=== PATIENT | female | born 1945 | race Caucasian/White ===

== ENCOUNTER 2018-01-05 08:38 | Emergency (ER) | payer OTHER ==
[~2018-01-05] VITALS: Ht 162.6 cm; Wt 104.3 kg
[2018-01-05] MEDS ORDERED: BLOOD PRESSURE (08:52)
[2018-01-05] MEDS ORDERED: ASTHMA (08:52)
[2018-01-05] MEDS ORDERED: ZOFRAN ODT4 MG PO ×2 (10:44→13:37)
[2018-01-05] MEDS ORDERED: BACTRIM DS TAB1 EACH PO (10:56)
[2018-01-05 11:15] LABS: ABSOLUTE BASOPHILS 0.1 thou/uL (0.0-0.2); ABSOLUTE EOSINOPHILS 0.1 thou/uL (0.0-0.7); ABSOLUTE LYMPHOCYTES 1.6 thou/uL (0.8-5.3); ABSOLUTE MONOCYTES 1.2 thou/uL (0.0-1.2); ABSOLUTE NEUTROPHILS 12.3 thou/uL (1.6-8.1); BASOPHILS 0.7 %; EOSINOPHILS 0.5 %; HEMATOCRIT 42.1 % (37.0-47.0); HEMOGLOBIN 13.8 gm/dL (12.0-15.0); LYMPHOCYTES 10.5 %; MCHC 32.7 g/dL (28.0-37.0); MCV 88.5 fL (80.0-100.0); MONOCYTES 8.1 %; MPV 9.4 fl. (7.2-11.1); NUCLEATED RBCS 0 /100WBC; PLATELET COUNT* 173 thou/uL (150-400); POLYS 80.2 %; RBC 4.76 mil/uL (4.20-5.00); RDW-CV 13.7 % (10.5-14.5); WBC 15.3 thou/uL (4.0-11.0)
[2018-01-05 11:24] LABS: CREATININE 0.7 mg/dL (0.6-1.3); POTASSIUM 3.2 mmol/L (3.5-5.1)
[2018-01-05 11:25] LABS: APTT 24.5 Seconds (25.0-31.3); INR 1.1; PROTIME 10.7 Seconds (9.20-11.50)
[2018-01-05 11:28] LABS: ALBUMIN 3.7 g/dL (3.4-5.0); TOTAL BILIRUBIN 0.4 mg/dL (<0.1-1.0); TOTAL PROTEIN 7.5 g/dL (6.4-8.2)
[2018-01-05] MEDS ORDERED: TRAMADOL 50 MG50 MG PO (13:37)
[2018-01-05 13:58] VITALS: BP 141/85
== END 2018-01-05 13:58 | disposition home or self-care (01) ==
LOC: M.ERS 08:38
PROVIDERS: Personal Emergency Response Attendant
DX: S62.102A Fracture of unspecified carpal bone, left wrist, initial encounter for closed fracture (principal); J45.909 Unspecified asthma, uncomplicated; M81.0 Age-related osteoporosis without current pathological fracture; Z88.0 Allergy status to penicillin; W01.0XXA Fall on same level from slipping, tripping and stumbling without subsequent striking against object, initial encounter; Y93.89 Activity, other specified; Y92.89 Other specified places as the place of occurrence of the external cause; Y99.8 Other external cause status

== ENCOUNTER → 2018-09-10 | Outpatient (CLI) | payer OTHER ==
[~2018-09-10] MED LIST: ASTHMA; BACTRIM DS TAB1 EACH PO; BLOOD PRESSURE; TRAMADOL 50 MG50 MG PO; ZOFRAN ODT4 MG PO
== END ==
LOC: M.RAD 10:27
DX: Z12.31 Encounter for screening mammogram for malignant neoplasm of breast (principal)

== ENCOUNTER → 2020-04-20 | Outpatient (CLI) | payer OTHER | LOC: M.RAD 03-26 09:37 | PROVIDERS: ATTEND Family Medicine | DX: Z12.31 Encounter for screening mammogram for malignant neoplasm of breast (principal); N64.89 Other specified disorders of breast; M81.0 Age-related osteoporosis without current pathological fracture; M85.862 Other specified disorders of bone density and structure, left lower leg; M85.88 Other specified disorders of bone density and structure, other site ==